=== PATIENT | female | born 1980 | race Caucasian/White ===

== ENCOUNTER 2021-05-25 12:17 | Outpatient (REF) | payer MEDICAID, SELFPAY | END 2021-05-25 12:18 | disposition home or self-care (01) | LOC: LBN 12:17 | PROVIDERS: Visit Provider Family Medicine | DX: R19.7 Diarrhea, unspecified (principal) | CPT/HCPCS: 87177 ==

== ENCOUNTER 2021-05-26 15:18 | Outpatient (REF) | payer MEDICAID, SELFPAY | END 2021-05-26 15:19 | disposition home or self-care (01) | LOC: LBN 15:18 | PROVIDERS: Visit Provider Family Medicine | DX: R19.7 Diarrhea, unspecified (principal) | CPT/HCPCS: 87177 ==

== ENCOUNTER 2022-11-09 00:16 | Emergency (ER) | payer MEDICAID, SELFPAY ==
--- NOTE | 2022-11-09 00:15 | DI.RAD_ITS ---
Exam(s) XR ANKLE LT COMPLETE EXAM: XR ANKLE LT COMPLETE CLINICAL HISTORY: left lateral ankle pain after twist. TECHNIQUE: 2D digital imaging was performed. COMPARISON: No exams were available for comparison FINDINGS: 3 views No evidence of acute fracture or widening of the ankle mortise. Talar dome unremarkable. No evidence of osseous tarsal coalition. IMPRESSION: No acute osseous findings. DATA REPOSITORY: RADIATION DOSE DELIVERED:
[2022-11-09 00:21] VITALS: BP 119/78; PULSE 95; RESP 20; TEMP 36.6; O2SAT 97
--- NOTE | 2022-11-09 00:25 | W.ED.GENAD ---
Discharge Plan Disposition Patient Disposition: Home Discharge Details Clinical Impression: Left ankle sprain Primary Care Provider: Anant Clarke ED Provider: Anant Mason Discharge Instructions Instructions: Ankle Sprain (ED) Additional Instructions: At this time the x-ray shows no evidence of fracture. Please wear the ankle brace for the next 1 to 2 weeks. Please do your best to stay off the ankle for the next 3 to 5 days and then gradually begin bearing weight as tolerated. While there is swelling, ice your ankle frequently. Take Tylenol and Motrin as needed for pain. If you notice any worsening of your symptoms, or any new symptoms such as vomiting, diarrhea, fever, chills, shortness of breath, chest pain, numbness, weakness, or fainting , please return immediately to the emergency department for reevaluation. Please follow up with your primary care provider as soon as possible for reassessment and reevaluation. As always, it was a pleasure participating in your medical care today. Referrals: Anant Clarke [Primary Care Provider] - Medical Decision Making This is a 42-year-old female with a past medical history of hidradenitis suppurativa, no other significant medical problems, presents today for evaluation of left lateral ankle pain. The patient states that she woke up after taking a nap in an odd position, she noticed her left foot had fallen asleep. She went and took a step, and immediately twisted her foot and inverted it. She heard a pop, and had notable pain. She came to the ER for further evaluation. She admits to continued minimal tingling throughout the foot. She denies any numbness otherwise though. She denies any other trauma. No other complaints at this time. No other modifying factors. Exam demonstrates mild swelling at the distal fibula, minimal tenderness there. Suspect potential anterior talofibular ligament injury. Low likelihood for fracture. We will get an x-ray and give Tylenol. We will monitor closely and reassess. X-ray shows no evidence of fracture. Radiology read is negative for acute process. We will give crutches and lace up ankle brace. Recommend NSAIDs at home. Discussed red flags for which to return. I have extensively reviewed the treatment plan and discharge instructions with the patient. I have addressed all patient concerns at this time. The patient was made aware of what symptoms to monitor for that would warrant a return to the emergency department. Discussed the plan with the patient, they demonstrate verbal understanding and agreement with our assessment and plan at this time. The documentation in this chart was dictated using [employer] dictation software. Please excuse any dictation errors. TECHNIQUE: Imaging protocol: Radiologic exam of the left ankle. Views: 3 or more views. COMPARISON: No relevant prior studies available. FINDINGS: Bones/joints: The distal tibia and fibula are intact. Ankle mortise is uniform. Talar dome is intact. Calcaneus is intact. Base of the 5th metatarsal is intact. No joint effusion. Soft tissues: No evidence of soft tissue air. Negative for radiopaque foreign body. IMPRESSION: No acute osseous abnormality. If symptoms persist, follow-up imaging is advised. Thank you for allowing us to participate in the care of your patient. Dictated and Authenticated by: Gagandeep Newman MD 11/09/2022 1:46 AM Eastern Time ([place] & [place]) HPI General Date/Time Provider Initiated Documentation: 11/09/22 00:16. HPI Narrative: This is a 42-year-old female with a past medical history of hidradenitis suppurativa, no other significant medical problems, presents today for evaluation of left lateral ankle pain. The patient states that she woke up after taking a nap in an odd position, she noticed her left foot had fallen asleep. She went and took a step, and immediately twisted her foot and inverted it. She heard a pop, and had notable pain. She came to the ER for further evaluation. She admits to continued minimal tingling throughout the foot. She denies any numbness otherwise though. She denies any other trauma. No other complaints at this time. No other modifying factors. Review of Systems All systems reviewed & are unremarkable except as noted in HPI and below PFSH All Active Problems (Updated 11/09/22 @ 00:53 by Anant Mason DO) Left ankle sprain (Acute) Social History Smoking/Tobacco Use Status: Current every day Tobacco Type: cigarettes Smoking risk assessment performed?: Yes Alcohol Intake: never Drug use: Never Substance use type: does not use Do you feel safe at home: Yes Do you feel safe in your relationship?: Yes Exam Narrative Exam Narrative: 1.Const: Well-nourished, Well-developed, appearing stated age 2.Eyes: PERRL, no conjunctival injection, and symmetrical lids. 3.ENT: Atraumatic external nose and ears. Moist MM. Neck: Symmetric, trachea midline, No thyromegaly. 4.CVS: +S1/S2, No murmurs or gallops. Peripheral pulses 2+ and equal in all extremities. Brisk capillary refill in all extremities. 5.RESP: Unlabored respiratory effort. Clear to auscultation bilaterally. No wheezes rales or rhonchi 6.GI: Soft, Nontender/Nondistended, No hepatosplenomegaly. No guarding or rebound. 7.MSK: Normocephalic/Atraumatic, Extremities w/o deformity, left ankle demonstrates mild swelling just distal to the fibula at the base of it. Minimal tenderness there. No significant ankle instability. Minimal pain with inversion, no pain with eversion. Good flexion and extension strength, with no significant pain. Sensation is intact throughout the foot, including for light touch and pinprick. 8.Skin: Warm, Dry. No rashes or lesions. 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 Sensation grossly intact, no focal neurologic deficits. 10.Psych: (AAO) x3. Appropriate mood and affect
[2022-11-09] MEDS: Acetaminophen 500 MG TAB 1000 MG PO (00:36)
--- NOTE | 2022-11-09 01:47 | DI.VRAD_ITS ---
PROCEDURE INFORMATION: Exam: XR Left Ankle Exam date and time: 11/09/2022 12:39 AM Age: 42 years old Clinical indication: Injury or trauma; Fall; Sprain or strain; Ankle; Left; Additional info: Fall, ankle pain TECHNIQUE: Imaging protocol: Radiologic exam of the left ankle. Views: 3 or more views. COMPARISON: No relevant prior studies available. FINDINGS: Bones/joints: The distal tibia and fibula are intact. Ankle mortise is uniform. Talar dome is intact. Calcaneus is intact. Base of the 5th metatarsal is intact. No joint effusion. Soft tissues: No evidence of soft tissue air. Negative for radiopaque foreign body. IMPRESSION: No acute osseous abnormality. If symptoms persist, follow-up imaging is advised. Dictated and Authenticated by: Gagandeep Newman MD. Ordering:SHLOMO Ny MD
--- NOTE | 2022-11-16 07:45 | NUR.NOTE ---
Nursing Note: Accessed pt chart to find the extremity that was affected. It was the left.
== END 2022-11-09 01:38 | disposition home or self-care (01) ==
LOC: ER 01:43
PROVIDERS: Emergency Provider Student in an Organized Health Care Education/Training Program; PCP Naturopath
DX: S93.492A Sprain of other ligament of left ankle, initial encounter (principal); X50.1XXA Overexertion from prolonged static or awkward postures, initial encounter
CPT/HCPCS: 99283; 73610

== ENCOUNTER 2023-05-28 09:54 | Emergency (ER) | payer MEDICAID, SELFPAY ==
[2023-05-28 10:00] VITALS: BP 129/106; PULSE 90; RESP 18; TEMP 37; O2SAT 99
[2023-05-28 11:15] VITALS: BP 129/93; PULSE 62; RESP 20; O2SAT 98
--- NOTE | 2023-05-28 11:23 | ED.GENADUL_ITS ---
Discharge Plan Disposition Patient Disposition: Home Condition: Good Discharge Details Clinical Impression: BRBPR (bright red blood per rectum), Hemorrhoid Primary Care Provider: Anant Clarke ED Provider: Sol Hathaway Home Meds and New Rx's Prescriptions: No Action No Known Home Meds Discharge Instructions Instructions: Hemorrhoids (ED) Additional Instructions: As we discussed, your labs are very reassuring here today. I do not see any thrombosed hemorrhoids today but there is one that appears that its been bleeding. This is likely the source of your blood. I have referred you to pelvic floor PT, the referral is attached. I also referred you to local primary care as well as general surgery for follow-up. Please continue to encourage hydration, abstain from any red food dyes. Please encourage fiber intake, abstain from triggering factors such as nightshades. If you develop pain, fever/chills or other new/worsening symptom please seek care urgently once again. Stand Alone Forms: Physical Therapy Referral Referrals: Anant Clarke [Primary Care Provider] - Discharge Data Discharge Date/Time-TO BE ENTERED AT DEPARTURE: 05/28/23 12:19 Medical Decision Making Patient is a pleasant 42-year-old female presenting today with chief complaint of bright red blood per rectum. States has been issue for her for years. Had been controlled with diet and pelvic floor PT but began having increased symptoms again recently. For the past 5 to 6 days has had burgundy colored stools. States that when she uses the bathroom she has a heavy pressure and she feels large amount of hemorrhoids. She states that she has been seen by general surgery at [facility] secondary to the amount of hemorrhoid burden there has not been complete any surgery on her. She denies any fevers or chills. No significant abdominal pain. States that her rectal pain stopped this morning af ter eating increased fiber yesterday. States that typically she is well controlled with her PT and diet but did stray from this over the summer. On exam, patient appears nontoxic. She is resting comfortably no acute distress and hemodynamically stable. She is pink conjunctiva, lips and mucous membranes are pink. She appears well-hydrated. Her abdomen is benign. On rectal exam, patient does have a large amount of hemorrhoid tissue but no acute thrombosed hemorrhoids. More anterior hemorrhoids, patient does have some dried blood. As the patient feels like she is been having large amount of blood loss, we will move forward with labs to evaluate for any potential anemia. She is not having any easy bruising or bleeding elsewhere to suggest coagulopathy. No active bleeding at this time. Labs reviewed. No anemia. No leukocytosis. CMP without significant abnormality. Discussed with patient. We discussed care of her hemorrhoids and encourage sitz bath's. Will refer to general surgery as she sounds to have been lost to follow-up with general surgery at [facility]. She has done quite well with pelvic floor PT in the past and is interested in another referral. She had also done well with dietary changes and will go back to her typical dietary restrictions which have helped with this issue historically. Return precautions were discussed. All of her questions and concerns were addressed and she is in agreement this plan. HPI General Date/Time Provider Initiated Documentation: 05/28/23 10:21 . Limitations to Documentation: no limitations . Information obtained by: patient and RN notes reviewed . History of Present Illness 42 year old F presents to the emergency department with the chief complaint of Bright red blood per rectum, described as moderate and similar to prior episodes, Quality is described as aching, and is localized to the buttocks (Aching and fullness in her rectum). Patient started experiencing this week(s) and it has been intermittent. Other factors that worsen symptoms (Bowel movement) . Patient notes no other symptoms.. Patient did receive the following treatments prior to arrival, none Related Data Home Medications Medication Instructions Recorded Confirmed Unknown [No Known Home Meds] 05/28/23 05/28/23 Allergies Allergy/AdvReac Type Severity Reaction Status Date / Time latex Allergy Hives Unverified 05/28/23 10:05 General Stated Complaint: GI Bleed CAREY: 3 Review of Systems Constitutional Constitutional: Reports as per HPI, Denies chills, Denies fever(s) and Denies headache(s) ENT Ears, Nose, Mouth, and Throat: Reports dizziness and Denies headache(s) Cardiovascular Cardiovascular: Reports as per HPI, Denies chest pain and Denies dyspnea Respiratory Respiratory: Reports as per HPI, Denies cough and Denies dyspnea Gastrointestinal Gastrointestinal: Reports as per HPI Musculoskeletal Musculoskeletal: Reports as per HPI and Denies back pain Integumentary/Breasts Skin/Breast: Reports as per HPI and Denies rash Neurologic Neurologic: Reports as per HPI, Reports dizziness and Denies headache(s) PFSH All Active Problems (Updated 05/28/23 @ 11:58 by LUZ ELENA Ray) BRBPR (bright red blood per rectum) (Acute) Hemorrhoid (Acute) Social History Smoking/Tobacco Use Status: Current every day Tobacco Type: cigarettes Smoking risk assessment performed?: Yes Alcohol Intake: never Drug use: Never Substance use type: does not use Do you feel safe at home: Yes Do you feel safe in your relationship?: Yes Exam Const General: cooperative, healthy appearing, comfortable, no acute distress and well developed Nutritional Appearance: average body habitus and well nourished Orientation: alert and awake HENMT Head: normal to inspection Mouth: moist mucous membranes Resp Effort & Inspection: normal respiratory effort, able to speak in complete sentences and no respiratory distress Auscultation: clear to auscultation bilaterally, no rales, no rhonchi and no wheezes Cardio Rate: regular rate Rhythm: regular rhythm Heart Sounds: S1 normal and S2 normal GI Inspection: normal to inspection Palpation: soft, no hepatosplenomegaly, no guarding, no hernias, not rigid and nontender Percussion: normal to percussion Auscultation: normal bowel sounds Rectal Exam - female: hemorrhoids (Nonthrombosed) Back/Spine/Pelvis Back: no CVA tenderness Skin General skin exam: no rashes or lesions noted Trauma: no lacerations or abrasions Neuro General: patient alert and patient awake Cognition: normal cognition Speech: speech normal Gait: normal gait Psych Appearance: grossly normal and well kempt Mental Status: mental status grossly normal Speech and Movement: speech and movement normal Course Vital Signs Vital signs: Vital Signs Temperature 37.0 C 05/28/23 10:00 Pulse 90 05/28/23 10:00 Respiratory Rate 18 05/28/23 10:00 Blood Pressure 129/106 H 05/28/23 10:00 Pulse Oximetry 99 05/28/23 10:00 Temperature 37.0 C 05/28/23 10:00 Temperature Source Skin 05/28/23 10:00 Pulse 90 05/28/23 10:00 Respiratory Rate 18 05/28/23 10:00 Blood Pressure 129/106 H 05/28/23 10:00 Blood Pressure Position Sitting 05/28/23 10:00 Pulse Oximetry 99 05/28/23 10:00 Oxygen Delivery Method Room Air 05/28/23 10:00 Oxygen Flow Rate 0 05/28/23 10:00 Pain Level 0 05/28/23 10:00
[2023-05-28 11:29] LABS: Abs Immature Grans 0.03 10^3/uL (0.0-0.06); Absolute Basophil Count 0.06 10^3/uL (0.0-0.2); Absolute Eosinophil Count 0.13 10^3/uL (0.0-0.7); Absolute Lymphocyte Count 3.36 10^3/uL (1.2-3.4); Absolute Monocyte Count 0.76 10^3/uL (0.1-0.8); Absolute Neutrophil Count 5.21 10^3/uL (1.2-6.7); Basophils % 0.6; Eosinophils % 1.4; HCT 40.2 % (36.0-46.0); HGB 13.7 g/dL (11.2-15.7); Immature Grans % 0.3; Lymphocytes % 35.2; MCH 29.1 pg (27.0-33.0); MCHC 34.1 % (32.0-36.0); MCV 85 fL (80-95); Neutrophils % 54.5; Platelet Count 471 10^3/uL (130-400); RBC 4.71 10^6/uL (3.93-5.22); RDW 13.5 % (11.7-14.6); RDW-SD 42.6 fL; WBC 9.55 10^3/uL (4.4-10.8)
[2023-05-28 11:30] VITALS: BP 121/97; PULSE 70; RESP 15; O2SAT 100
[2023-05-28 11:45] VITALS: BP 129/74; PULSE 65; RESP 17; O2SAT 100
[2023-05-28 11:46] LABS: ALT 14 U/L (14-59); AST 11 U/L (15-37); Albumin 3.8 g/dL (3.4-5.0); Alkaline Phosphatase 110 U/L (46-116); Anion Gap 8.6 mmol/L (3-11); BUN 12 mg/dL (7-18); Bilirubin, Total 0.4 mg/dL (0.2-1.0); CO2 25.4 mmol/L (21.0-32.0); CREATININE 0.9 mg/dL (0.55-1.02); Calcium 9.3 mg/dL (8.5-10.1); Chloride 104 mmol/L (98-107); Estimated GFR 81.86 (mL/min/1.73m2); Glucose 96 mg/dL (74-106); Magnesium 2.2 mg/dL (1.8-2.4); Sodium 138 mmol/L (136-145); Troponin I < 50 ng/L (<or=60)
[2023-05-28 12:17] VITALS: BP 126/80; PULSE 85; RESP 20; TEMP 36.8; O2SAT 98
--- NOTE | 2023-05-28 16:43 | NUR.NOTE ---
Faxed to [facility] for rectal bleeding bright red in 2 weeks. Referral given to Care Management to PCP for routine appt with routine follow up. Nursing Note:
== END 2023-05-28 12:19 | disposition home or self-care (01) ==
PROVIDERS: Emergency Provider Physician Assistant; PCP Naturopath
DX: K62.5 Hemorrhage of anus and rectum (principal); K64.9 Unspecified hemorrhoids; F17.210 Nicotine dependence, cigarettes, uncomplicated; R53.1 Weakness; Z87.19 Personal history of other diseases of the digestive system
CPT/HCPCS: 36415; 80053; 81025; 99283; 83735; 84484; 85025

== ENCOUNTER 2023-10-30 10:52 | Emergency (ER) | payer MEDICAID, SELFPAY ==
[2023-10-30 10:56] VITALS: BP 142/89; PULSE 111; RESP 18; TEMP 36.6; O2SAT 99
--- NOTE | 2023-10-30 13:09 | W.ED.GENAD ---
HPI General Date/Time Provider Initiated Documentation: 10/30/23 11:02. HPI Narrative: This 43-year-old female is presenting with abscess on her right gluteal cleft, states it has been present for the past several days. History of hidradenitis suppurativa. Denies any chance of . Denies fever or chills. Started on doxycycline yesterday, has a prescription from her sales and marketing assistant. Denies any abdominal pain, chest pain, shortness of breath. Denies any history of IV drug use. Related Data Home Medications Medication Instructions Recorded Confirmed bisacodyl 5 mg tablet,delayed 5 mg PO ONCE colonscopy bowel prep 06/07/23 10/30/23 release (Dulcolax (bisacodyl)) #4 tabs clindamycin phosphate 1 % topical 1 applic topical DAILY 06/07/23 10/30/23 gel hydrocortisone 2.5 % topical cream 1 applic topical QID PRN skin 06/07/23 10/30/23 irritation #30 grams polyethylene glycol 3350 17 238 g PO ONCE colonoscopy prep 06/07/23 10/30/23 gram/dose oral powder #238 grams Previous Rx's Medication Instructions Recorded bisacodyl 5 mg tablet,delayed 5 mg PO ONCE colonscopy bowel prep 06/07/23 release (Dulcolax (bisacodyl)) #4 tabs hydrocortisone 2.5 % topical cream 1 applic topical QID PRN skin 06/07/23 irritation #30 grams polyethylene glycol 3350 17 238 g PO ONCE colonoscopy prep 06/07/23 gram/dose oral powder #238 grams Allergies Allergy/AdvReac Type Severity Reaction Status Date / Time latex Allergy Hives Unverified 10/30/23 11:06 General Stated Complaint: RashLesion CAREY: 4 Course Vital Signs Vital signs: Vital Signs Temperature 36.6 C 10/30/23 10:56 Pulse 111 H 10/30/23 10:56 Respiratory Rate 18 10/30/23 10:56 Blood Pressure 142/89 H 10/30/23 10:56 Pulse Oximetry 99 10/30/23 10:56 Temperature 36.6 C 10/30/23 10:56 Temperature Source Temporal Artery Scan 10/30/23 10:56 Pulse 111 H 10/30/23 10:56 Respiratory Rate 18 10/30/23 10:56 Respiratory Effort Normal 10/30/23 11:00 Blood Pressure 142/89 H 10/30/23 10:56 Pulse Oximetry 99 10/30/23 10:56 Procedures Abscess I/D Site: Other Side (if applicable): Right Local Anesthetic: Lidocaine 1% and With Epi Technique: Incised with #11 Blade Amount of fluid expressed (mL): 5 Irrigation: Yes Packing used?: None Medical Decision Making 43-year-old female presenting with abscess to gluteal cleft, approximately 2 inch x 2 inches with induration and fluctuance, no significant surrounding cellulitis, afebrile and nontoxic Incision and drainage was performed, no antibiotics indicated at this time Refer to surgery as needed Warm compresses outpatient and regular dressing changes recommended Return precautions reviewed and patient expressed understanding tolerated procedure without incident Ibuprofen and Tylenol as needed pain Quality:SDOH Health Related Social Needs: No Data to Display PFSH All Active Problems Abscess (Acute) Smoker (Acute) Medical History Hidradenitis suppurativa Social History Smoking/Tobacco Use Status: Current every day Tobacco Type: cigarettes Smoking risk assessment performed?: Yes Alcohol Intake: never Drug use: Never Substance use type: does not use Current gender identity: female Do you feel safe at home: Yes Do you feel safe in your relationship?: Yes Discharge Plan Disposition Patient Disposition: Home Condition: Stable Discharge Details Clinical Impression: Abscess Primary Care Provider: Anant Clarke ED Provider: Raysa Day [place] Meds and New Rx's Prescriptions: Continued clindamycin phosphate 1 % gel 1 applic topical DAILY polyethylene glycol 3350 17 gram/dose powder 238 g PO ONCE Qty: 238 0RF Rx Instructions: take per colonoscopy instructions bisacodyl [Dulcolax (bisacodyl)] 5 mg tablet,delayed release (DR/EC) 5 mg PO ONCE Qty: 4 0RF Rx Instructions: take per colonoscopy instructions hydrocortisone 2.5 % cream 1 applic topical QID PRN (Reason: skin irritation) Qty: 30 6RF Discharge Instructions Instructions: Abscess (ED) Additional Instructions: Warm compresses Tylenol and ibuprofen as needed for pain You may follow-up with surgery if you have recurrent cysts Change dressing as it becomes saturated at least once a day Wash with warm soap and water Return earlier should you have spreading redness, fever, worsening pain Referrals: Sarita Joaquin, [OSTEOPATHIC DOCTOR] -
== END 2023-10-30 13:59 | disposition home or self-care (01) ==
PROVIDERS: Emergency Provider Physician Assistant; PCP Naturopath
DX: L02.31 Cutaneous abscess of buttock (principal); Z87.2 Personal history of diseases of the skin and subcutaneous tissue
CPT/HCPCS: 10060

== ENCOUNTER 2024-01-15 18:17 | Emergency (ER) | payer MEDICAID, SELFPAY ==
[2024-01-15 18:22] VITALS: BP 124/82; PULSE 96; RESP 18; TEMP 36.3; O2SAT 100
--- NOTE | 2024-01-15 19:38 | ED.GENADUL_ITS ---
Discharge Plan Disposition Patient Disposition: Home Condition: Stable Discharge Details Clinical Impression: Hematochezia Primary Care Provider: Anant Clarke ED Provider: Dionne Cabrera Home Meds and New Rx's Prescriptions: No Action ferrous sulfate [Feosol] 325 mg (65 mg iron) tablet 325 mg PO DAILY cholecalciferol (vitamin D3) [Vitamin D3] 50 mcg (2,000 unit) capsule 50 mcg PO DAILY ascorbic acid (vitamin C) [C Complex] 500 mg tablet extended release 500 mg PO DAILY HPI General Date/Time Provider Initiated Documentation: 01/15/24 18:19 . Limitations to Documentation: no limitations . Information obtained by: patient, family and old records reviewed . HPI Narrative: 43-year-old female with past medical history of rectal bleeding presents for evaluation of persistent rectal bleeding. Patient was in the department the emergency department yesterday, was being evaluated and was going to be admitted for colonoscopy and definitive treatment. Patient reports that she left AGAINST MEDICAL ADVICE because she was worried that she was and that they did not do a test on her. She states that she was also worried that the colonoscopy would make her bleeding worse and that she would not be able to hold pressure on the area. I have reviewed the medical record from that visit and noted that both urine and blood quantitative testing were both negative. The patient eloped from the emergency department without speaking with anyone. Yesterday was also here in the emergency department when we received a phone call from [facility], they did a wellness check after the patient eloped from the emergency department to make sure that she did not have her IV in place. They called to report they are concerned that the patient was having internal bleeding and that she would be coming to the emergency department. But the patient never arrived yesterday. She states that she is here today so that she can get a CT scan in the colonoscopy and maybe get a blood transfusion if she needs it. Related Data Home Medications Medication Instructions Recorded Confirmed ascorbic acid (vitamin C) 500 mg 500 mg PO DAILY 01/15/24 01/15/24 tablet,extended release (C Complex) cholecalciferol (vitamin D3) 50 50 mcg PO DAILY 01/15/24 01/15/24 mcg (2,000 unit) capsule (Vitamin D3) ferrous sulfate 325 mg (65 mg 325 mg PO DAILY 01/15/24 01/15/24 iron) tablet (Feosol) Allergies Allergy/AdvReac Type Severity Reaction Status Date / Time latex Allergy Hives Unverified 01/15/24 18:25 General Stated Complaint: GI Bleed CAREY: 3 Exam Narrative Exam Narrative: Review of Systems: All systems reviewed & are unremarkable except as noted in HPI and below Well-developed, no acute distress NCAT PERRL, normal conjunctiva RRR Unlabored respiratory effort Nondistended abdomen Extremities w/o deformity, no cyanosis, no edema No rashes or lesions. no focal neurologic deficits Appropriate mood and affect Course Vital Signs Vital signs: Vital Signs Temperature 36.3 C L 01/15/24 18:22 Pulse 96 H 01/15/24 18:22 Respiratory Rate 18 01/15/24 18:22 Blood Pressure 124/82 01/15/24 18:22 Pulse Oximetry 100 01/15/24 18:22 Temperature 36.3 C L 01/15/24 18:22 Temperature Source Skin 01/15/24 18:22 Pulse 96 H 01/15/24 18:22 Respiratory Rate 18 01/15/24 18:22 Respiratory Effort Normal 01/15/24 19:03 Blood Pressure 124/82 01/15/24 18:22 Blood Pressure Position Sitting 01/15/24 18:22 Pulse Oximetry 100 01/15/24 18:22 Oxygen Delivery Method Room Air 01/15/24 18:22 Oxygen Flow Rate 0 01/15/24 18:22 Pain Level 0 01/15/24 18:22 Medical Decision Making Patient is hemodynamically stable and has no evidence of instability. She states that she is not actively bleeding. I have reviewed her record and workup from yesterday at [facility]. The patient is interested in resuming the workup that she eloped from. I advised that we could start some evaluation but ultimately she would need to be transferred to [facility] for GI evaluation or colonoscopy. Upon hearing this, the patient decided that she would like to go to [facility] herself. Given that she is hemodynamically stable and not actively bleeding I feel that this is safe for her. Quality:SDOH Health Related Social Needs: No Data to Display PFSH All Active Problems Hematochezia (Acute) Smoker (Acute) Medical History Hidradenitis suppurativa Social History Smoking/Tobacco Use Status: Current every day Tobacco Type: cigarettes Smoking risk assessment performed?: Yes Alcohol Intake: never Drug use: Never Substance use type: does not use Current gender identity: female Do you feel safe at home: Yes Do you feel safe in your relationship?: Yes
== END 2024-01-15 19:03 | disposition home or self-care (01) ==
PROVIDERS: Emergency Provider Emergency Medicine; PCP Naturopath
DX: K92.1 Melena (principal); F17.210 Nicotine dependence, cigarettes, uncomplicated
CPT/HCPCS: 99283

== ENCOUNTER 2025-03-19 13:03 | Outpatient (CLI) | payer MEDICAID, SELFPAY ==
--- NOTE | 2025-03-19 13:33 | DI.RAD_ITS ---
Exam(s) XR RIBS LT W PA LAT CHEST CLINICAL HISTORY Pleurodynia, R07.81, lt sternochondral jt pain and at ribs 5, 6, 7, 8 s/p a. COMPARISON: No exams were available for comparison TECHNIQUE:: PA and lateral views of the chest and 5 views of the left ribs were performed. FINDINGS: LUNGS: Clear. No pleural abnormality seen. Small calcified granuloma left upper lobe. HEART: Normal. MEDIASTINUM: Calcified hilar lymph nodes related to old healed granulomatous disease. BONES: No displaced rib fracture is seen. No compression fractures are seen in the thoracic spine. No bony destructive lesion is seen. Mild biconvex thoracolumbar scoliosis. IMPRESSION: 1. Unremarkable radiographic appearance of the left ribs. 2. No acute pulmonary findings.
== END 2025-03-19 13:23 ==
PROVIDERS: PCP Naturopath; Visit Provider Naturopath
DX: R07.81 Pleurodynia (principal)
CPT/HCPCS: 71046; 71100

== ENCOUNTER 2025-03-19 13:51 | Outpatient (CLI) | payer MEDICAID, SELFPAY ==
[2025-03-19 13:54] LABS: Abs Immature Grans 0.03 10^3/uL (0.0-0.06); HCT 40.3 % (36.0-46.0); HGB 13.6 g/dL (11.2-15.7); Immature Grans % 0.3 %; MCH 29.7 pg (27.0-33.0); MCHC 33.7 % (32.0-36.0); MCV 88 fL (80-95); MPV 8.7 fL (8.0-11.0); Platelet Count 410 10^3/uL (130-400); RBC 4.58 10^6/uL (3.93-5.22); RDW 13.8 % (11.7-14.6); RDW-SD 44.1 fL; WBC 10.63 10^3/uL (4.4-10.8)
[2025-03-19 15:02] LABS: Iron 90 ug/dL (50-170); Total Iron Binding Capacity 301 ug/dL (250-450); Transferrin Sat 30 % (15-50)
[2025-03-19 15:22] LABS: Ferritin 22 ng/mL (8-252); Folate 9.7 ng/mL (8.6-20.0); Vitamin B12 365 pg/mL (193-986)
== END 2025-03-19 13:52 | disposition home or self-care (01) ==
LOC: LBO 13:52
PROVIDERS: PCP Naturopath; Visit Provider Naturopath
DX: E61.1 Iron deficiency (principal)
CPT/HCPCS: 36415; 82607; 82728; 82746; 83540; 83550; 85025

== ENCOUNTER 2025-05-13 17:50 | Emergency (ER) | payer MEDICAID, SELFPAY ==
[2025-05-13 17:53] VITALS: BP 115/81; PULSE 80; RESP 16; TEMP 36.8; O2SAT 98
[2025-05-13 18:15] VITALS: BP 115/81; PULSE 80; RESP 16; TEMP 36.8; O2SAT 98
--- NOTE | 2025-05-13 18:18 | ED.GENADUL_ITS ---
Discharge Plan Disposition Patient Disposition: Home Discharge Details Clinical Impression: Rectal bleed Primary Care Provider: Anant Clarke ED Provider: Mynor King Home Meds and New Rx's Prescriptions: Continued ferrous sulfate [Feosol] 325 mg (65 mg iron) tablet 325 mg PO DAILY cholecalciferol (vitamin D3) [Vitamin D3] 50 mcg (2,000 unit) capsule 50 mcg PO DAILY ascorbic acid (vitamin C) [C Complex] 500 mg tablet extended release 500 mg PO DAILY acetylcysteine 600 mg capsule 600 mg PO DAILY Patient Comments: TAKE 1 CAPSULE BY MOUTH TWICE DAILY nicotine (polacrilex) 4 mg lozenge 4 mg PO PRN PRN Patient Comments: DISSOLVE 1 LOZENGE BY MOUTH EVERY 2 HOURS Discharge Instructions Instructions: Bloody Stools, Adult ED Additional Instructions: Please follow-up with your primary care provider regarding your visit to the emergency department today. Be sure to discuss with them a referral to [facility] For further specialized care be sure to discuss results of all test performed here today to include radiology, and laboratory testing as well as results for any pending cultures. Should your symptoms worsen, or if you develop new concerning symptoms, please return immediately emergency department for further evaluation. HPI General Date/Time Provider Initiated Documentation: 05/13/25 17:57 . HPI Narrative: MDM/Narrative: 44-year-old female with rectal bleeding since 04/18/2025, worsening recently. H istory of hemorrhoids and banding. Temporary relief with iron supplementation. Plan: Blood test for hemoglobin levels. Differential Diagnosis: - GI bleeding: Recent increase in chronic rectal bleeding. Plan: Blood test for hemoglobin levels, if stable f/u with GI. 1900 Results reviewed, hemoglobin is within normal limits, no organ dysfunction on remainder of blood work. Patient will discharge to follow-up with her GI surgeon and PCP regarding referral to [facility]. Clinical Impression: - Hemorrhoids - GI bleeding This document was created with assistance from [employer] The patient consented to its use. Disposition: Home HPI: The patient is a 44-year-old female presenting with rectal bleeding since April 18, 2025, which has recently exacerbated. She reports daily episodes of hematochezia and has a history of internal and external hemorrhoids previously treated with banding. Surgical intervention has been deemed unsuitable due to anticipated postoperative pain. The patient manages her condition at home using diaper rash cream and by avoiding prolonged sitting. Despite these measures, intermittent bleeding persists. She is experiencing difficulty with insurance coverage and is seeking an appointment in [place]. As a single mother, she expresses concern about her health and reports experiencing anxiety. She tracks her bleeding episodes, which typically occur once every morning. Additionally, she reports malaise, leg paresthesia, mild abdominal pain attributed to flatulence, and urinary incontinence. She recently discontinued N-acetylcysteine (NAC) 600 mg. Blood and iron transfusions administered in January and February 2024 provided some symptomatic relief. Previous colonoscopies have revealed only hemorrhoids. ROS: Negative besides as mentioned above Exam: Vital signs: Reviewed. General Appearance: Alert and oriented. No acute distress. HEENT: NCAT, EOMI, not icteric. External ears normal. No rhinorrhea. Moist mucous membranes. Neck: Supple, full range of motion, no observable masses, No meningeal sign. Respiratory: No Respiratory distress. No tachypnea. Cardiovascular: RRR, no edema. Gastrointestinal: Mild abdominal tenderness on palpation, no significant increase in pain. Back: No midline tenderness to palpation or palpable step-offs of the C/T/L spine. Skin: Warm and dry, no rash. Neurological: Normal Gait, Grossly intact. Psychiatric: Appropriate for situation. Labs: Laboratory Tests Range/Units 05/13/25 05/13/25 18:23 18:35 WBC (4.4-10.8) 10^3/uL 10.76 RBC (3.93-5.22) 10^6/uL 4.15 Hgb (11.2-15.7) g/dL 12.5 Hct (36.0-46.0) % 36.9 MCV (80-95) fL 89 MCH (27.0-33.0) pg 30.1 MCHC (32.0-36.0) % 33.9 RDW (11.7-14.6) % 13.3 Plt Count (130-400) 10^3/uL 435 H MPV (8.0-11.0) fL 9.2 Immature Gran % % 0.4 Neutrophils % % 51.7 Lymphocytes % % 33.6 Monocytes % % 11.4 Eosinophils % % 2.4 Basophils % % 0.5 Nucleated RBC % (0.0-0.3) % 0.0 Absolute Neutrophils (1.2-6.7) 10^3/uL 5.56 Absolute Lymphocytes (1.2-3.4) 10^3/uL 3.62 H Absolute Monocytes (0.1-0.8) 10^3/uL 1.23 H Absolute Eosinophils (0.0-0.7) 10^3/uL 0.26 Absolute Basophils (0.0-0.2) 10^3/uL 0.05 Sodium (136-145) mmol/L 137 Potassium (3.5-5.1) mmol/L 3.9 Chloride (98-107) mmol/L 103 Carbon Dioxide (21.0-32.0) mmol/L 27.8 Anion Gap (3-11) mmol/L 6.2 BUN (7-18) mg/dL 16 Creatinine (0.55-1.02) mg/dL 0.8 Est GFR (CKD-EPI 2020) (mL/min/1.73m2) 93.12 Glucose (74-106) mg/dL 96 Calcium (8.5-10.1) mg/dL 9.0 Total Bilirubin (0.2-1.0) mg/dL 0.2 AST (15-37) U/L 16 ALT (14-59) U/L 22 Alkaline Phosphatase (46-116) U/L 107 Total Protein (6.4-8.2) g/dL 7.5 Albumin (3.4-5.0) g/dL 3.7 Urine Color (Yellow) Yellow Urine Clarity (Clear) Clear Urine pH (5-8) 7.5 Ur Specific [place] (1.005-1.025) 1.015 Urine Protein (Neg-Trace) mg/dL Negative Urine Ketones (Negative) mg/dL Negative Urine Blood (Negative) Moderate H Urine Nitrite (Negative) Negative Urine Bilirubin (Negative) Negative Urine Urobilinogen (Up to 0.2) mg/dL 0.2 Ur Leukocyte Esterase (Negative) Trace H Urine RBC (0-2) HPF 10-20 H Urine WBC (0-5) HPF 0-2 Ur Epithelial Cells (Negative) HPF Many Urine Crystals (Negative) HPF Negative Urine Bacteria (Negative) HPF Rare Urine Mucus (Negative) Negative Ur Culture Indicated? No Urine Glucose (Negative) mg/dL Negative Urine HCG, Qual Negative Related Data Home Medications ?Medication ?Instructions ?Recorded ?Confirmed ascorbic acid (vitamin C) 500 mg 500 mg PO DAILY 01/1405/13/25 tablet,extended release (C Complex) cholecalciferol (vitamin D3) 50 50 mcg PO DAILY 05/13/25 mcg (2,000 unit) capsule (Vitamin D3) ferrous sulfate 325 mg (65 mg 325 mg PO DAILY 01/15/24 05/13/25 iron) tablet (Feosol) acetylcysteine 600 mg capsule 600 mg PO DAILY 05/13/25 05/13/25 nicotine (polacrilex) 4 mg buccal 4 mg PO PRN PRN 12/0205/13/25 lozenge Allergies Allergy/AdvReac Type Severity Reaction Status Date / Time latex Allergy Hives Unverified 05/13/25 18:00 General Stated Complaint: Abd Prob CAREY: 3 Course Vital Signs Vital signs: Vital Signs Temperature 36.8 C 05/13/25 17:53 Pulse 80 05/13/25 17:53 Respiratory Rate 16 05/13/25 17:53 Blood Pressure 115/81 05/13/25 17:53 Pulse Oximetry 98 05/13/25 17:53 Temperature 36.8 C 05/13/25 18:15 Temperature Source Oral 05/13/25 18:15 Pulse 80 05/13/25 18:15 Respiratory Rate 16 05/13/25 18:15 Blood Pressure 115/81 05/13/25 18:15 Blood Pressure Position Sitting 05/13/25 18:15 Pulse Oximetry 98 05/13/25 18:15 Oxygen Delivery Method Room Air 05/13/25 18:15 Oxygen Flow Rate 0 05/13/25 18:15 Pain Level 5 05/13/25 18:15 PFSH All Active Problems Rectal bleed (Acute) Smoker (Acute) Medical History Hidradenitis suppurativa Social History Smoking/Tobacco Use Status: Current every day Tobacco Type: cigarettes Smoking risk assessment performed?: Yes Alcohol Intake: never Drug use: Never Substance use type: marijuana Housing: house Current gender identity: female Do you feel safe at home: Yes Do you feel safe in your relationship?: Yes Additional Social history: patient state she feels safe at home
[2025-05-13 18:35] LABS: Abs Immature Grans 0.04 10^3/uL (0.0-0.06); HCT 36.9 % (36.0-46.0); HGB 12.5 g/dL (11.2-15.7); Immature Grans % 0.4 %; MCH 30.1 pg (27.0-33.0); MCHC 33.9 % (32.0-36.0); MCV 89 fL (80-95); MPV 9.2 fL (8.0-11.0); Platelet Count 435 10^3/uL (130-400); RBC 4.15 10^6/uL (3.93-5.22); RDW 13.3 % (11.7-14.6); RDW-SD 43.7 fL; WBC 10.76 10^3/uL (4.4-10.8)
[2025-05-13 18:40] LABS: Glucose Negative (Negative)
[2025-05-13 18:48] LABS: C & S Indicated? No; WBC 0-2 HPF (0-5)
[2025-05-13 18:49] LABS: HCG Qual (Urine) Negative
[2025-05-13 18:50] LABS: ALT 22 U/L (14-59); AST 16 U/L (15-37); Albumin 3.7 g/dL (3.4-5.0); Alkaline Phosphatase 107 U/L (46-116); Anion Gap 6.2 mmol/L (3-11); BUN 16 mg/dL (7-18); Bilirubin, Total 0.2 mg/dL (0.2-1.0); CO2 27.8 mmol/L (21.0-32.0); Calcium 9.0 mg/dL (8.5-10.1); Chloride 103 mmol/L (98-107); Estimated GFR 93.12 (mL/min/1.73m2); Glucose 96 mg/dL (74-106); Potassium 3.9 mmol/L (3.5-5.1); Sodium 137 mmol/L (136-145); Total Protein 7.5 g/dL (6.4-8.2)
== END 2025-05-13 19:16 | disposition home or self-care (01) ==
PROVIDERS: Emergency Provider General Practice; PCP Naturopath
DX: K62.5 Hemorrhage of anus and rectum (principal)
CPT/HCPCS: 99283 ×2; 81025; 36415; 80053; 86850; 86900; 86901; 81003; 81015; 85025